=== PATIENT | female | born 1960 | race Hispanic/Latino ===

== ENCOUNTER → 2016-09-16 | Day surgery (SDC) | payer OTHER ==
[~2016-09-16] VITALS: Ht 167.6 cm; Wt 97.5 kg
[~2016-09-16] MED LIST: ALBUTEROL2.5 MG/3 M INH/SOL; AMOXICILLIN500 MG PO; ANTIVERT 25 MG25 MG PO; ASPIR 8181 MG PO; BACTROBAN OINT.15 GM TOP; BYETTA250 MCG/ML SC; CLARITHROMYCIN500 MG PO; GABAPENTIN100 M2 PO; GABAPENTIN100 MG PO; HYDROXYZINE PAM50 MG; IBU800 MG PO; LANTUS SOLOS100 U/ML SC; LANTUS100 UNIT/1 SC; LEVOTHYROXINE0.1 M1 PO; LOPRESSOR100 M1 PO; LOSARTAN POTASS25 MG PO; LOSARTAN POTASS50 MG PO; METFORMIN HCL1000 MG PO; NASONEX0.05 MG/Ac NAS; NORCO 325 MG-51 TAB; NOVOLOG 10300 UNITS/ SC; NOVOLOG100 UNIT/2 SC; PRAVASTATIN SOD10 MG PO; RESTASIS 0.4 M0.4 ML OPH; SPIRIVA 18 MCG18 MCG INH; SYMBICORT 16010.2 GM INH; SYNTHROID175 MCG PO
--- NOTE | 2016-09-16 13:30 | Operative Report ---
Operative/Inv Procedure Report Surgery Date: 09/16/16 Name of Procedure: Excision soft tissue mass right hand deep to the thenar musculature 1.2 cm Pre-Operative Diagnosis: Soft tissue mass right hand Post-Operative Diagnosis: Same Estimated Blood Loss: scant Surgeon/Pig Sticker: SINTIA LOVE MD Anesthesia: moderate sedation Operative/Procedure Note Note: Patient was counseled regards to the procedure the alternatives risks and the expected outcomes as relates to her request for surgical intervention to treat a symptomatic soft tissue mass of the right hand. We talked about definitely visible scarring possibly unsightly or symptomatic numbness injury to surrounding structures pain bleeding seroma recurrence open wound. Dictation continued from this point. It was prepped and draped in usual sterile fashion. Incision was made overlying the mass was dissected free from the surrounding tissues and was within the thenar musculature. The wound was hemostatic irrigated closed and dressed. She mass the benign in appearance not adherent to the surrounding tissues was identified. Rony 1.2 cm.
== END ==
LOC: STS 01:49
DX: D21.11 Benign neoplasm of connective and other soft tissue of right upper limb, including shoulder (principal); J44.9 Chronic obstructive pulmonary disease, unspecified; Z87.891 Personal history of nicotine dependence; E11.9 Type 2 diabetes mellitus without complications; Z79.84 Long term (current) use of oral hypoglycemic drugs; I10 Essential (primary) hypertension
CPT/HCPCS: 88307; J0690; J2250; J2405